=== PATIENT | male | born 1965 | race Caucasian/White ===

== ENCOUNTER 2016-07-07 16:29 | Emergency (ER) | payer BC ==
--- NOTE | 2016-07-07 17:37 | Emergency Department Report ---
Entered by RIVERA RECIO, acting as scribe for CHEY CRAWLEY PA. Chief Complaint: Head Injury Stated Complaint: FALL/ HIT HEAD HARD Time Seen by Provider: 07/07/16 17:06 - HPI History of Present Illness: Patient presents to the ED c/o generalized headache that began yesterday. Pt states that he fell at home off a chair and subsequently hit his head hard on a window seal. Reports cough, nausea, vomiting, dizziness, chills, and fever last night (104). Reports 1 vomiting episode last night and this morning. Denies neck pain and stiffness. Denies blurry vision. Took Advil and Tylenol. - ROS Review of Systems: All system are negative unless stated in HPI above. - Exam Vital Signs: Vital Signs 07/07/16 16:49 Temperature 98.6 F Pulse Rate 107 H Respiratory 18 Rate Blood Pressure 119/92 O2 Sat by Pulse 100 Oximetry Physical Exam: General: well nourished, well developed, nontoxic in appearance, in no acute distress Eyes: PEERL, EOMI bilaterally. NO sclera. No conjunctiva. Respiratory: lungs clear and normal work of breathing bilaterally Cardiovascular: S1/S2 regular rate and rhythm Neck: No C-spine tenderness. Supple, FROM. Neurologic: A&O x 3, normal gait, GCS 15. No facial drooping. Speech clear and fluid. MSE screening note: Focused history and physical exam performed. Due to findings the following was ordered: ED Medical Decision Making - Medical Decision Making Medical decision making: Patient seen by provider in triage area. Appropriate protocol activated and patient to main ED to be seen by physician. ED Disposition for MSE Condition: Stable This documentation as recorded by the scribe,RIVERA RECIO,accurately reflects the service I personally performed and the decisions made by me,CHEY CRAWLEY PA.
--- NOTE | 2016-07-07 18:04 | Cat Scan Report ---
FINAL REPORT EXAM: CT HEAD/BRAIN WO CON HISTORY: head injury with YOUNG TECHNIQUE: CT imaging acquired through the head without intravenous contrast. Transaxial reformations are provided. PRIORS: None. FINDINGS: The ventricles, cisterns and sulci are within normal limits. No intraparenchymal or extra-axial mass, hemorrhage, or mass effect. Jackson and white-matter differentiation is within normal limits. Normal spherical shape of the globes. Partially imaged paranasal sinuses and mastoid air cells are clear. No skull or facial fracture visualized. IMPRESSION: No acute intracranial abnormality. Consider additional imaging for worsening/persistent symptoms.
[2016-07-07] MEDS ORDERED: TYLENOL PO ONE (18:14)
[2016-07-07] MEDS ORDERED: PEPCID PO ONE (18:14)
[2016-07-07] MEDS ORDERED: ALUM-MAG HYDROX-SIMETH 200-200-20MG/5ML PO ONE (18:14)
[2016-07-07 18:18] LABS: Basophils % (Auto) 0.6 % (0.0-1.8); Hematocrit 47.9 % (35.5-45.6); Hemoglobin 15.8 gm/dl (11.8-15.2); Mean Corpuscular HGB Conc 33 % (32-34); Mean Corpuscular Volume 77 fl (84-94); Platelet Count 249 K/mm3 (140-440); Red Blood Count 6.19 M/mm3 (3.65-5.03); Red Cell Distribution Width 14.5 % (13.2-15.2); White Blood Count 6.7 K/mm3 (4.5-11.0)
[2016-07-07 18:30] LABS: Mean Corpuscular Hemoglobin 26 pg (28-32)
[2016-07-07 18:32] LABS: INR 0.99 (0.87-1.13); Partial Thromboplastin Time 33.8 Sec. (24.2-36.6)
[2016-07-07 18:35] LABS: BUN/Creatinine Ratio 10.76; Calcium 9.4 mg/dL (8.4-10.2); Chloride 95.1 mmol/L (98-107); Potassium 4.3 mmol/L (3.6-5.0)
--- NOTE | 2016-07-07 18:37 | Emergency Department Report ---
ED General Adult HPI - General Chief complaint: Head Injury Stated complaint: FALL/ HIT HEAD HARD Time Seen by Provider: 07/07/16 17:12 Source: patient Mode of arrival: Ambulatory Limitations: No Limitations - History of Present Illness Initial comments: 51-year-old male presents to the emergency department with multiple complaints. Patient states he was in his usual state of health until yesterday afternoon. He states he was at home and was getting up from the table when his leg got caught on the chair causing him to fall. He states he hit his left side on the wall and his head on the windowsill. There was no loss of consciousness. Later in the day patient began having severe nausea and vomited a single time. He reported associated dizziness and chills. states she checked his temperature last night and he had a fever of 104.5F. Patient has been taking Advil for pain. Patient vomited a second time this morning. Patient also developed a dry cough after the fall. There are no other complaints. -: Sudden, days(s) (1) Location: head Radiation: non-radiation Severity scale (0 -10): 6 Quality: aching Consistency: constant Improves with: none Worsens with: none Associated Symptoms: cough, fever/chills, nausea/vomiting Treatments Prior to Arrival: NSAID - Related Data Home Medications Medication Instructions Recorded Confirmed Last Taken Ergocalciferol [Vitamin D2] 1 cap PO QWEEK 07/07/16 07/07/16 Unknown Montelukast [Singulair] 10 mg PO QDAY 07/07/16 07/07/16 Unknown Ranitidine HCl [Heartburn Relief] 75 mg PO QDAY 07/07/16 07/07/16 Unknown Vit D3/Folic Acid/B2/B6/B12 1 tab PO QDAY 07/07/16 07/07/16 Unknown [Folgard Tablet] Previous Rx's Medication Instructions Recorded Last Taken Type HYDROcodone/APAP 5-325 [[place] 1 each PO Q6HR PRN #20 tablet 07/07/16 Unknown Rx 5/325] Allergies Allergy/AdvReac Type Severity Reaction Status Date / Time No Known Allergies Allergy Unverified 07/07/16 16:54 ED Review of Systems ROS: Stated complaint: FALL/ HIT HEAD HARD Other details as noted in HPI Comment: All other systems reviewed and negative Constitutional: chills, fever Respiratory: cough Gastrointestinal: nausea, vomiting ED Past Medical Hx - Past Medical History Previous Medical History?: Yes Hx GERD: Yes - Surgical History Past Surgical History?: No - Family History Family history: no significant - Social History Smoking Status: Never Smoker Substance Use Type: None - Medications Home Medications: Home Medications Medication Instructions Recorded Confirmed Last Taken Type Ergocalciferol [Vitamin D2] 1 cap PO QWEEK 07/07/16 07/07/16 Unknown History HYDROcodone/APAP 5-325 [[place] 1 each PO Q6HR PRN #20 tablet 07/07/16 Unknown Rx 5/325] Montelukast [Singulair] 10 mg PO QDAY 07/07/16 07/07/16 Unknown History Ranitidine HCl [Heartburn Relief] 75 mg PO QDAY 07/07/16 07/07/16 Unknown History Vit D3/Folic Acid/B2/B6/B12 1 tab PO QDAY 07/07/16 07/07/16 Unknown History [Folgard Tablet] ED Physical Exam - General Limitations: No Limitations General appearance: alert, in no apparent distress - Head Head exam: Present: atraumatic, normocephalic - Eye Eye exam: Present: normal appearance, PERRL, EOMI - ENT ENT exam: Present: normal exam, normal orophraynx, mucous membranes moist - Neck Neck exam: Present: normal inspection, full ROM. Absent: tenderness - Respiratory Respiratory exam: Present: normal lung sounds bilaterally. Absent: respiratory distress - Cardiovascular Cardiovascular Exam: Present: normal rhythm, tachycardia, normal heart sounds - GI/Abdominal GI/Abdominal exam: Present: soft, normal bowel sounds. Absent: distended, tenderness - Extremities Exam Extremities exam: Present: normal inspection, full ROM. Absent: tenderness - Back Exam Back exam: Present: normal inspection, full ROM. Absent: tenderness - Neurological Exam Neurological exam: Present: alert, oriented X3. Absent: motor sensory deficit - Skin Skin exam: Present: warm, dry, intact ED Course Vital Signs 07/07/16 07/07/16 07/07/16 16:49 17:59 18:00 Temperature 98.6 F Pulse Rate 107 H Respiratory 18 Rate Blood Pressure 119/92 119/81 O2 Sat by Pulse 100 100 99 Oximetry 07/07/16 07/07/16 07/07/16 18:08 18:20 18:31 Temperature Pulse Rate Respiratory 18 18 Rate Blood Pressure 119/81 O2 Sat by Pulse 99 98 Oximetry ED Medical Decision Making - Lab Data Result diagrams: 07/07/16 17:53 07/07/16 17:53 - Radiology Data Radiology results: image reviewed interpreted by me: Chest x-ray shows no acute cardiopulmonary abnormality. Head CT shows no acute intracranial abnormality. - Medical Decision Making Lab and imaging results reviewed and discussed with the patient. Patient has no objective findings on imaging. His labs are unremarkable. I suspect the patient has 2 separate processes going on. Patient will be treated supportively for an acute bronchitis. He'll also be treated with pain medication for headache with likely concussion. Patient will be discharged home at this time. - Differential Diagnosis concussion, intracranial hemorrhage, pneumonia, bronchitis Critical care attestation.: If time is entered above; I have spent that time in minutes in the direct care of this critically ill patient, excluding procedure time. ED Disposition Clinical Impression: Concussion Qualifiers: Encounter type: initial encounter Loss of consciousness presence/duration: without LOC Qualified Code(s): S06.0X0A - Concussion without loss of consciousness, initial encounter Acute bronchitis Qualifiers: Bronchitis organism: unspecified organism Qualified Code(s): J20.9 - Acute bronchitis, unspecified Disposition: DISCHARGED TO HOME OR SELFCARE Is pt being admited?: No Condition: Stable Instructions: Acute Bronchitis (ED), Concussion (ED) Prescriptions: HYDROcodone/APAP 5-325 [[place] 5/325] 1 each PO Q6HR PRN #20 tablet PRN Reason: Pain Referrals: PRIMARY CARE, [Primary Care Provider] - 3-5 Days Time of Disposition: 19:09
[2016-07-07] MEDS ORDERED: NORCO 5/325 PO ONE (19:04)
[2016-07-07 19:18] VITALS: BP 109/71
--- NOTE | 2016-07-08 08:09 | XRay Report ---
ROUTINE CHEST, TWO VIEWS: HISTORY: Cough, fever. The trachea, heart, mediastinal contour, lung morales and bony thorax are unremarkable. IMPRESSION: Unremarkable chest x-ray.
== END 2016-07-07 19:19 | disposition home or self-care (01) ==
LOC: ED 16:29
DX: S06.0X0A Concussion without loss of consciousness, initial encounter (principal); J20.9 Acute bronchitis, unspecified; K21.9 Gastro-esophageal reflux disease without esophagitis; W22.01XA Walked into wall, initial encounter; Y93.89 Activity, other specified; Y99.8 Other external cause status; Y92.098 Other place in other non-institutional residence as the place of occurrence of the external cause
CPT/HCPCS: 36415; 70450; 71020; 80048; 82140; 85025; 85610; 85730; 87040